=== PATIENT | female | born 1985 | race Caucasian/White ===

== ENCOUNTER 2016-12-02 10:30 | Emergency (ER) | payer MEDICAID ==
[2016-12-02] MEDS ORDERED: OXYCODONE-ACETAMINOPHEN 5-325 MG TABLET PO ONE (10:36)
--- NOTE | 2016-12-02 10:37 | ER Document Report ---
ED Medical Screen (RME) - General Stated Complaint: LEFT SIDE PAIN Time seen by provider: 10:33 Mode of Arrival: Ambulatory Information source: Patient TRAVEL OUTSIDE OF THE [place] IN LAST 30 DAYS: No - HPI Patient complains to provider of: LEFT SIDED ABD PAIN Onset: This morning Onset/Duration: Sudden Context: PERIOD STARTED THIS MORNING. PASSING LARGE CLOTS Quality of pain: Sharp, Stabbing Severity: Severe Pain Level: 5 Associated Symptoms: Abdominal pain, Vaginal bleeding Exacerbated by: Denies Relieved by: Denies Similar symptoms previously: Yes Recently seen / treated by doctor: No - Related Data Smoking: Non-smoker Frequency of alcohol use: None Drug Abuse: None Pertinent History: BTL Allergies/Adverse Reactions: No Known Allergies Allergy (Verified 12/02/16 10:32) Past Medical History - Past Medical History Cardiac Medical History: Reports: Hx Hypercholesterolemia, Hx Hypertension - x4 yrs, medication Denies: Hx Heart Attack, Hx Heart Murmur Pulmonary Medical History: Denies: Hx Asthma Neurological Medical History: Reports: Hx Seizures - x3 2007, no meds now . Denies: Hx Cerebrovascular Accident Endocrine Medical History: Reports: Hx Hyperthyroidism GI Medical History: Denies: Hx Hepatitis, Hx Hiatal Hernia, Hx Ulcer Infectious Medical History: Denies: Hx Hepatitis Past Surgical History: Reports: Hx Section, Hx Thyroid Surgery - Removal, Hx Tubal Ligation. Denies: Hx Hysterectomy, Hx Mastectomy, Hx Open Heart Surgery, Hx Pacemaker - Immunizations Hx Diphtheria, Pertussis, Tetanus Vaccination: Yes
[2016-12-02] MEDS ORDERED: HYDROCODONE/ACETAMINOPHEN 5-325 MG TABLET PO ONE (10:42)
[2016-12-02] MEDS ORDERED: NAPROXEN 250 MG TABLET PO ONE (10:51)
--- NOTE | 2016-12-02 11:04 | ER Document Report ---
Addendum entered and electronically signed by DIANA ALEMAN FNP 08:02: Impression/Plan Impression: DX: Dysmenorrhea Original Note: ED General - General Chief Complaint: Lower Abdominal Pain Stated Complaint: LEFT SIDE PAIN Mode of Arrival: Ambulatory Notes: This 31-year-old female presenting to the emergency room today stating she has cramping to her left lower quadrant consistent with menstrual cramps however a bit more severe than normal she did just start her period this morning her last menstrual period was approximately 30 days ago. She also states that she is bleeding a bit more heavily than normal. Using a pad every 3 hours. TRAVEL OUTSIDE OF THE [place] IN LAST 30 DAYS: No - HPI Onset: This morning - Related Data Allergies/Adverse Reactions: acetaminophen [From Percocet] Adverse Reaction (Verified 12/02/16 10:42) oxycodone [From Percocet] Adverse Reaction (Verified 12/02/16 10:42) Past Medical History - General Information source: Patient - Social History Smoking Status: Never Smoker Chew tobacco use (# tins/day): No Frequency of alcohol use: None Drug Abuse: None Family History: Reviewed & Not Pertinent Patient has suicidal ideation: No Patient has homicidal ideation: No - Past Medical History Cardiac Medical History: Reports: Hx Hypercholesterolemia, Hx Hypertension - x4 yrs, medication Denies: Hx Heart Attack, Hx Heart Murmur Pulmonary Medical History: Denies: Hx Asthma Neurological Medical History: Reports: Hx Seizures - x3 2007, no meds now . Denies: Hx Cerebrovascular Accident Endocrine Medical History: Reports: Hx Hyperthyroidism Renal/ Medical History: Denies: Hx Peritoneal Dialysis GI Medical History: Denies: Hx Hepatitis, Hx Hiatal Hernia, Hx Ulcer Infectious Medical History: Denies: Hx Hepatitis Past Surgical History: Reports: Hx Section, Hx Thyroid Surgery - Removal, Hx Tubal Ligation. Denies: Hx Hysterectomy, Hx Mastectomy, Hx Open Heart Surgery, Hx Pacemaker - Immunizations Hx Diphtheria, Pertussis, Tetanus Vaccination: Yes Review of Systems - Review of Systems Constitutional: No symptoms reported EENT: No symptoms reported Cardiovascular: No symptoms reported Respiratory: No symptoms reported Gastrointestinal: No symptoms reported Genitourinary: No symptoms reported Female Genitourinary: No symptoms reported Musculoskeletal: No symptoms reported Skin: No symptoms reported Hematologic/Lymphatic: No symptoms reported Neurological/Psychological: No symptoms reported Physical Exam - Vital signs Interpretation: Normal - General General appearance: Appears well, Alert - HEENT Head: Normocephalic, Atraumatic Eyes: Normal Pupils: PERRL - Respiratory Respiratory status: No respiratory distress Chest status: Nontender Breath sounds: Normal Chest palpation: Normal - Cardiovascular Rhythm: Regular Heart sounds: Normal auscultation Murmur: No - Abdominal Inspection: Normal Distension: No distension Bowel sounds: Normal Tenderness: Other - tender to deep palpation to LLQ over ovary Organomegaly: No organomegaly - Back Back: Normal, Nontender - Extremities General upper extremity: Normal inspection, Nontender, Normal color, Normal ROM , Normal temperature General lower extremity: Normal inspection, Nontender, Normal color, Normal ROM , Normal temperature, Normal weight bearing. No: Dior's sign - Neurological Neuro grossly intact: Yes Cognition: Normal Orientation: AAOx4 Gracie Coma Scale Eye Opening: Spontaneous [place] Coma Scale Verbal: Oriented [place] Coma Scale Motor: Obeys Commands Gracie Coma Scale Total: 15 Speech: Normal Motor strength normal: LUE, RUE, LLE, RLE Sensory: Normal - Psychological Associated symptoms: Normal affect, Normal mood - Skin Skin Temperature: Warm Skin Moisture: Dry Skin Color: Normal Course - Laboratory Laboratory results interpreted by me: 12/02/16 10:56 Urine Protein 30 H Discharge - Discharge Condition: Good Disposition: HOME, SELF-CARE Instructions: Dysmenorrhea ([facility]) Additional Instructions: Dysmenorrhea Your pain is dysmenorrhea -- severe pain during periods. It can be caused by uterine cramping with normal periods, or by conditions such as endometriosis (growths of uterine lining tissue outside the uterus). Your physician has found no life-threatening cause for your pain. You will receive treatment to relieve symptoms. Often antiinflammatory medication (such as ibuprofen) can help with dysmenorrhea if taken soon enough. It's best started at the first sign of a period. More severe dysmenorrhea, such as that caused by endometriosis, may require narcotic pain medication. control pills may help for recurrent dysmenorrhea if symptoms don't respond to other treatments. Regular exercise, maintaining the proper body weight, and "eating healthy" make dysmenorrhea less severe. Return for further evaluation if new symptoms develop, or if pain worsens or spreads, or if vaginal bleeding increases significantly. Follow-up with private doctor in 1 to 2 days for final radiology readings please return to the emergency room for any change worsening condition. Follow up with private M.D. for all other routine health care needs. Prescriptions: Tramadol HCl [Ultram 50 mg Tablet] 50 mg PO Q4HP PRN #60 tab PRN Reason: Naproxen Sodium [Naproxen Sodium ER] 500 mg PO Q12 PRN #20 tablet.sa PRN Reason:
[2016-12-02 11:12] LABS: APPEARANCE,URINE SLIGHTLY-CLOUDY; BILIRUBIN,URINE NEGATIVE (NEGATIVE); GLUCOSE, URINE NEGATIVE (NEGATIVE); KETONES,URINE NEGATIVE (NEGATIVE); LEUKOCYTE ESTERASE,URINE NEGATIVE (NEGATIVE); NITRITE,URINE NEGATIVE (NEGATIVE); PROTEIN,URINE 30 mg/dL (NEGATIVE); URINE SPECIFIC GRAVITY 1.025; UROBILINOGEN,URINE NEGATIVE mg/dL (<2.0)
[2016-12-02 12:01] VITALS: BP 121/86
== END 2016-12-02 12:01 | disposition home or self-care (01) ==
LOC: ER 10:30
DX: N94.6 Dysmenorrhea, unspecified (principal); R10.32 Left lower quadrant pain; Z88.5 Allergy status to narcotic agent; I10 Essential (primary) hypertension
CPT/HCPCS: 99284; 81025; 81001; J3490

== ENCOUNTER 2018-01-13 10:15 | Emergency (ER) | payer MEDICAID, OTHER ==
[2018-01-13 11:30] LABS: APPEARANCE,URINE CLEAR; BILIRUBIN,URINE NEGATIVE (NEGATIVE); GLUCOSE, URINE NEGATIVE (NEGATIVE); KETONES,URINE NEGATIVE (NEGATIVE); LEUKOCYTE ESTERASE,URINE NEGATIVE (NEGATIVE); NITRITE,URINE POSITIVE (NEGATIVE); PROTEIN,URINE 30 mg/dL (NEGATIVE); URINE SPECIFIC GRAVITY 1.027
[2018-01-13 11:33] LABS: COLOR,URINE RED
[2018-01-13] MEDS ORDERED: CEPHALEXIN 500 MG CAPSULE PO ONE (11:43)
[2018-01-13] MEDS ORDERED: FLUCONAZOLE 100 MG TABLET PO ONE (11:43)
--- NOTE | 2018-01-13 11:49 | ER Document Report ---
HPI - HPI Patient complains to provider of: UTI Pain Level: 3 Context: Patient is a 32-year-old female who presents to the Emergency department with a chief complaint Urinary frequency, urgency, pyuria and pelvic pressure that started yesterday. She denies any nausea, vomiting, abdominal pain, diarrhea, constipation, fevers or chills. States she did take [id number] Azo without any significant improvement in her symptoms. She also admits to vaginal discharge that is different than her normal for about a week. Patient is sexually active with her . Last menstrual period was 2 weeks ago. - CONSTITUTIONAL Constitutional: DENIES: Fever, Chills - EENT EENT: DENIES: Sore Throat, Ear Pain, Eye problems - NEURO Neurology: DENIES: Headache, Weakness, Vision blurred, Dizzinesss / Vertigo - CARDIOVASCULAR Cardiovascular: DENIES: Chest pain - RESPIRATORY Respiratory: DENIES: Trouble Breathing, Coughing - GASTROINTESTINAL Gastrointestinal: REPORTS: Abdominal Pain. DENIES: Black / Bloody Stools - URINARY Urinary: REPORTS: Dysuria, Urgency, Frequency - REPRODUCTIVE Reproductive: DENIES: :, Postmenopausal, Abnormal bleeding / discharge - MUSCULOSKELETAL Musculoskeletal: DENIES: Extremity pain Past Medical History - Social History Smoking Status: Former Smoker Chew tobacco use (# tins/day): No Frequency of alcohol use: None Drug Abuse: None Family History: Reviewed & Not Pertinent Patient has suicidal ideation: No Patient has homicidal ideation: No - Past Medical History Cardiac Medical History: Reports: Hx Hypercholesterolemia, Hx Hypertension - x4 yrs, medication Denies: Hx Heart Attack, Hx Heart Murmur Pulmonary Medical History: Denies: Hx Asthma Neurological Medical History: Reports: Hx Seizures - x3 2007, no meds now . Denies: Hx Cerebrovascular Accident Endocrine Medical History: Reports: Hx Hyperthyroidism Renal/ Medical History: Denies: Hx Peritoneal Dialysis GI Medical History: Denies: Hx Hepatitis, Hx Hiatal Hernia, Hx Ulcer Infectious Medical History: Denies: Hx Hepatitis Past Surgical History: Reports: Hx Section, Hx Thyroid Surgery - Removal, Hx Tubal Ligation. Denies: Hx Hysterectomy, Hx Mastectomy, Hx Open Heart Surgery, Hx Pacemaker - Immunizations Hx Diphtheria, Pertussis, Tetanus Vaccination: Yes Vertical Provider Document - CONSTITUTIONAL Agree With Documented VS: Yes Notes: PHYSICAL EXAM GENERAL: Alert, interacts well. LUNGS: Clear to auscultation bilaterally, no wheezes, rales, or rhonchi. No respiratory distress. HEART: Regular rate and rhythm. No murmurs, gallops, or rubs. ABDOMEN: Soft, nondistended, nontender. No guarding, rebound, or rigidity.. Bowel sounds present in all 4 quadrants. Pelvic exam declined EXTREMITIES: Moves all 4 extremities spontaneously. No edema, radial and dorsalis pedis pulses 2/4 bilaterally. No cyanosis. NEUROLOGICAL: Alert and oriented x4. Normal speech. PSYCH: Normal affect, normal mood. SKIN: Warm, dry, normal turgor. No rashes or lesions noted. - INFECTION CONTROL TRAVEL OUTSIDE OF THE [place] IN LAST 30 DAYS: No - RESPIRATORY O2 Sat by Pulse Oximetry: 98 Course - Re-evaluation Re-evalutation: 01/13/18 11:44 Patient presents with symptoms consistent with an acute cystitis also with presence of yeast and symptoms consistent with vaginal candiasis. Vitals wnl. No history of fever, flank pain, or constitution symptoms to suggest ascending infection at this time. Patient is well in appearance, tolerating oral intake without difficulty. No focal abdominal tenderness to suggest acute appendicitis , biliary pathology, acute pancreatitis, tubo-ovarian abscesses, or pelvic inflammatory disease. Patient will be started on antibiotics at this time. A culture has been sent. They will be discharged with return precautions and follow-up recommendations. - Vital Signs Vital signs: Temp Pulse Resp BP Pulse Ox 97.8 F 86 20 136/79 H 98 01/13/18 10:38 01/13/18 10:38 01/13/18 10:38 01/13/18 10:38 01/13/18 10:38 - Laboratory Laboratory results interpreted by ak: 01/13/18 10:25 Urine Protein 30 H Urine Blood MODERATE H Urine Nitrite POSITIVE H Urine Urobilinogen 4.0 H Discharge - Discharge Clinical Impression: Vagina, candidiasis UTI (urinary tract infection) Qualifiers: Urinary tract infection type: acute cystitis Hematuria presence: with hematuria Qualified Code(s): N30.01 - Acute cystitis with hematuria Condition: Good Disposition: HOME, SELF-CARE Additional Instructions: Your urine shows findings consistent with a urinary tract infection. Please take all the antibiotics as directed even if your symptoms have improved. Please follow-up with your primary care physician as needed. Return to emergency room if you develop fever >101F, persistent vomiting, become lethargic , have severe pain in your sides, or any other symptoms that are concerning to you. Vaginal Yeast Infection You have evidence of a yeast infection -- called "elina." A vaginal yeast infection often causes itching and discharge. While not dangerous, it can be very unpleasant. A yeast infection often follows the use of powerful antibiotics. It is more likely to occur in diabetics. The treatment now is usually a single pill of Diflucan, but also an antifungal cream or suppository may be used for a few days. You do not need to avoid sexual intercourse. Recurrences are common. You can make a recurrence less likely by wearing cotton underwear and avoiding tight clothing. For mild recurrences, you can try [id number] creams or suppositories that are made specifically for yeast. If the symptoms do not resolve, you should follow up for re-examination with your primary care doctor. Sometimes treatment of the sexual partner is necessary if infections are recurrent. Prescriptions: Cephalexin Monohydrate [Keflex 500 mg Capsule] 500 mg PO BID 5 Days capsule Fluconazole [Diflucan] 150 mg PO ONCE PRN #1 tablet PRN Reason: Forms: Return to Work Referrals: PAVEL KING MD [Primary Care Provider] - Follow up in 1 week
[2018-01-13 12:00] VITALS: BP 131/69
== END 2018-01-13 12:00 | disposition home or self-care (01) ==
LOC: ER 10:15
DX: B37.3 Candidiasis of vulva and vagina (principal); N30.01 Acute cystitis with hematuria; E78.00 Pure hypercholesterolemia, unspecified; I10 Essential (primary) hypertension; Z87.891 Personal history of nicotine dependence; Z98.51 Tubal ligation status
CPT/HCPCS: 99283; 87086; 81025; 87088; 81001; 87186; J3490

== ENCOUNTER 2018-12-01 10:25 | Emergency (ER) | payer MEDICAID ==
[2018-12-01] MEDS ORDERED: ONDANSETRON HCL INJ/PF 4 MG/2 ML SDV IV ONE (10:48)
[2018-12-01] MEDS ORDERED: NORMAL SALINE 1000 ML 1,000 ML IV ONE (10:49)
[2018-12-01] MEDS ORDERED: FAMOTIDINE INJ/PF 20 MG/2 ML SDV IV ONE (10:49)
[2018-12-01] MEDS ORDERED: MAG HYDROX/AL HYDROX/SIMETH SUSP 30 ML UDCUP PO ONE (10:50)
[2018-12-01] MEDS ORDERED: METOCLOPRAMIDE HCL ORAL SOLN 10 MG/10 ML UDCUP PO ONE (10:50)
[2018-12-01] MEDS ORDERED: LIDOCAINE 2% VISCOUS SOLN 20 ML UDCUP PO ONE (10:50)
--- NOTE | 2018-12-01 10:52 | ER Document Report ---
ED Medical Screen (RME) - General Chief Complaint: Abdominal Pain Stated Complaint: FLANK/ABDOMINAL PAIN Time Seen by Provider: 12/01/18 10:44 Primary Care Provider: PAVEL KING MD [Primary Care Provider] - Follow up as needed Information source: Patient Notes: 33-year-old female presents emergency department with complaints of left upper quadrant abdominal pain for the last 2 months. She describes the pain as a sharp and stabbing sensation. No radiation. She states that when she has this pain she has associated nausea but denies any vomiting, constipation. Patient states that last night she began having more epigastric pain. She states that she has been having some diarrhea today. No history of sick contacts. No hematochezia, melena. Last menstrual period was 11/17/18. I have greeted and performed a rapid initial assessment of this patient. A comprehensive ED assessment and evaluation of the patient, analysis of test results and completion of the medical decision making process will be conducted by additional ED providers. PHYSICAL EXAMINATION: GENERAL: Well-appearing, well-nourished and in no acute distress. HEAD: Atraumatic, normocephalic. EYES: Pupils equal round extraocular movements intact, conjunctiva are normal. ENT: Nares patent NECK: Normal range of motion LUNGS: No respiratory distress Musculoskeletal: Normal range of motion NEUROLOGICAL: Normal speech, normal gait. PSYCH: Normal mood, normal affect. SKIN: Warm, Dry, normal turgor, no rashes or lesions noted. TRAVEL OUTSIDE OF THE [place] IN LAST 30 DAYS: No - Related Data Allergies/Adverse Reactions: oseltamivir [From Tamiflu] Allergy (Verified 12/01/18 10:28) acetaminophen [From Percocet] Adverse Reaction (Verified 01/13/18 10:19) oxycodone [From Percocet] Adverse Reaction (Verified 01/13/18 10:19) Past Medical History - Past Medical History Cardiac Medical History: Reports: Hx Hypercholesterolemia, Hx Hypertension - x4 yrs, medication Denies: Hx Heart Attack, Hx Heart Murmur Pulmonary Medical History: Denies: Hx Asthma Neurological Medical History: Reports: Hx Seizures - x3 2007, no meds now . Denies: Hx Cerebrovascular Accident Endocrine Medical History: Reports: Hx Hyperthyroidism Renal/ Medical History: Denies: Hx Peritoneal Dialysis GI Medical History: Denies: Hx Hepatitis, Hx Hiatal Hernia, Hx Ulcer Infectious Medical History: Denies: Hx Hepatitis Past Surgical History: Reports: Hx Section, Hx Thyroid Surgery - Removal, Hx Tubal Ligation. Denies: Hx Hysterectomy, Hx Mastectomy, Hx Open Heart Surgery, Hx Pacemaker - Immunizations Hx Diphtheria, Pertussis, Tetanus Vaccination: Yes Physical Exam - Vital signs Vitals: Temp Pulse Resp BP Pulse Ox 98.7 F 80 20 125/65 99 12/01/18 10:42 12/01/18 10:42 12/01/18 10:42 12/01/18 10:42 12/01/18 10:42 Course - Vital Signs Vital signs: Temp Pulse Resp BP Pulse Ox 98.7 F 80 20 125/65 99 12/01/18 10:42 12/01/18 10:42 12/01/18 10:42 12/01/18 10:42 12/01/18 10:42 Doctor's Discharge - Discharge Referrals: PAVEL KING MD [Primary Care Provider] - Follow up as needed
[2018-12-01 11:18] LABS: APPEARANCE,URINE CLOUDY; BILIRUBIN,URINE NEGATIVE (NEGATIVE); COLOR,URINE YELLOW; GLUCOSE, URINE NEGATIVE (NEGATIVE); KETONES,URINE NEGATIVE (NEGATIVE); LEUKOCYTE ESTERASE,URINE TRACE (NEGATIVE); NITRITE,URINE NEGATIVE (NEGATIVE); PROTEIN,URINE NEGATIVE (NEGATIVE); URINE SPECIFIC GRAVITY 1.023; UROBILINOGEN,URINE NEGATIVE mg/dL (<2.0)
--- NOTE | 2018-12-01 11:24 | ER Document Report ---
ED GI/ - General Chief Complaint: Abdominal Pain Stated Complaint: FLANK/ABDOMINAL PAIN Time Seen by Provider: 12/01/18 10:44 Primary Care Provider: PAVEL KING MD [Primary Care Provider] - Follow up as needed Notes: 33-year-old female presents emergency department with complaints of left upper quadrant abdominal pain for the last 2 months. She describes the pain as a sharp and stabbing sensation. No radiation. She states that when she has this pain she has associated nausea but denies any vomiting, constipation. Patient states that last night she began having more epigastric pain. She states that she has been having some diarrhea today. No history of sick contacts. No hematochezia, melena. Last menstrual period was 11/17/18. TRAVEL OUTSIDE OF THE [place] IN LAST 30 DAYS: No - Related Data Allergies/Adverse Reactions: oseltamivir [From Tamiflu] Allergy (Verified 12/01/18 10:28) acetaminophen [From Percocet] Adverse Reaction (Verified 01/13/18 10:19) oxycodone [From Percocet] Adverse Reaction (Verified 01/13/18 10:19) Past Medical History - General Information source: Patient - Social History Smoking Status: Never Smoker Family History: Reviewed & Not Pertinent Patient has suicidal ideation: No Patient has homicidal ideation: No - Past Medical History Cardiac Medical History: Reports: Hx Hypercholesterolemia, Hx Hypertension - x4 yrs, medication Denies: Hx Heart Attack, Hx Heart Murmur Pulmonary Medical History: Denies: Hx Asthma Neurological Medical History: Reports: Hx Seizures - x3 2007, no meds now . Denies: Hx Cerebrovascular Accident Endocrine Medical History: Reports: Hx Hyperthyroidism Renal/ Medical History: Denies: Hx Peritoneal Dialysis GI Medical History: Denies: Hx Hepatitis, Hx Hiatal Hernia, Hx Ulcer Infectious Medical History: Denies: Hx Hepatitis Past Surgical History: Reports: Hx Section, Hx Thyroid Surgery - 11/13/15 Removal, Hx Tubal Ligation. Denies: Hx Hysterectomy, Hx Mastectomy, Hx Open Heart Surgery, Hx Pacemaker - Immunizations Hx Diphtheria, Pertussis, Tetanus Vaccination: Yes Review of Systems - Review of Systems Constitutional: denies: Chills, Fever Gastrointestinal: Abdominal pain, Nausea. denies: Vomiting Neurological/Psychological: denies: Headaches -: Yes All other systems reviewed and negative Physical Exam - Vital signs Vitals: Temp Pulse Resp BP Pulse Ox 98.7 F 80 20 125/65 99 12/01/18 10:42 12/01/18 10:42 12/01/18 10:42 12/01/18 10:42 12/01/18 10:42 - Notes Notes: GENERAL_APPEARANCE: well_nourished, alert, cooperative, no_acute_distress, no_obvious_discomfort. VITALS: reviewed, see vital signs table. HEAD: no_swelling\tenderness on the head. EYES: PERRL, EOMI, conjunctiva_clear. NOSE: no_nasal_discharge. MOUTH: (-)decreased moisture. THROAT: no_throat_inflammation, no_airway_obstruction. no_lymphadenopathy NECK: supple, no_neck_tenderness, (-)thyromegaly. BACK: no_back_tenderness. CHEST_WALL: no_chest_tenderness. LUNGS: no_wheezing, no_rales, no_rhonchi, (-)accessory muscle use, good air exchange bilateral. HEART: normal_rate, normal_rhythm, normal_S1, normal_S2, (-)S3, (-)S4, no_murmur, no_rub. ABDOMEN: normal_BS, soft, left upper quadrant_abd_tenderness, (-)guarding, (- )rebound, no_organomegaly, no_abd_masses. EXTREMITIES: good pulses in all_extremities, no_swelling\tenderness in the ext remities, no_edema. SKIN: warm, dry, good_color, no_rash. MENTAL_STATUS: speech_clear, oriented_X_3, normal_affect, responds_appropriately to questions. NEURO: Neg Motor or Sensory Deficits on exam, CN 2-12 intact, DTR 2+ symmetric x 4, No cerbellar signs Course - Re-evaluation Re-evalutation: 12/01/18 11:22 33-year-old female presents with 2-month history of left upper quadrant left flank pain. States this is been on and off for the last 2 months. She is rather sharp and stabbing patient also had some nausea last night. She comes in for evaluation and treatment. She has spoke with her family doctor about this who thought this was more constipation driven patient. - Vital Signs Vital signs: Temp Pulse Resp BP Pulse Ox 98.7 F 80 20 125/65 99 01/30/19 10:42 12/01/18 10:42 12/01/18 10:42 12/01/18 10:42 12/01/18 10:42 - Laboratory Result Diagrams: 12/01/18 11:20 12/01/18 11:20 Laboratory results interpreted by me: 12/01/18 12/01/18 10:55 11:20 MCV 79 L MCH 26.0 L RDW 14.9 H Urine Blood SMALL H Ur Leukocyte Esterase TRACE H Discharge - Discharge Clinical Impression: Abdominal pain Qualifiers: Abdominal location: left upper quadrant Qualified Code(s): R10.12 - Left upper quadrant pain Disposition: HOME, SELF-CARE Instructions: Abdominal Pain ([facility]) Prescriptions: Famotidine [Pepcid 40 mg Tablet] 40 mg PO QHS #30 tablet Referrals: PAVEL KING MD [Primary Care Provider] - Follow up as needed
[2018-12-01 11:53] LABS: ABSOLUTE BASOPHILS # (AUTO) 0.1 10^3/uL (0.0-0.2); ABSOLUTE EOSINOPHILS # (AUTO) 0.1 10^3/uL (0.0-0.6); ABSOLUTE LYMPHOCYTES (AUTO) 2.1 10^3/uL (0.5-4.7); ABSOLUTE MONOCYTES (AUTO) 0.5 10^3/uL (0.1-1.4); ABSOLUTE NEUT (AUTO) 6.3 10^3/uL (1.7-8.2); BASOPHILS % (AUTO) 0.6 % (0-2); EOSINOPHILS % (AUTO) 1.2 % (0-6); HEMATOCRIT 37.9 % (36.0-47.0); HEMOGLOBIN 12.5 g/dL (12.0-15.5); LYMPHOCYTES % (AUTO) 23.1 % (13-45); MEAN CORPUSCULAR HGB CONC 33.1 g/dL (32.0-36.0); MEAN CORPUSCULAR VOLUME 79 fl (80-97); MONOCYTES % (AUTO) 5.5 % (3-13); PLATELET COUNT 446 10^3/uL (150-450); RED BLOOD COUNT 4.82 10^6/uL (3.72-5.28); RED CELL DISTRIBUTION WIDTH 14.9 % (11.5-14.0); SEGMENTED NEUTROPHILS % (AUTO) 69.6 % (42-78); TOTAL CELLS COUNTED % (AUTO) 100 %
[2018-12-01 12:05] LABS: ALANINE AMINOTRANSFERASE 22 U/L (9-52); ALBUMIN 4.9 g/dL (3.5-5.0); ALKALINE PHOSPHATASE 69 U/L (38-126); ANION GAP 10 (5-19); ASPARTATE AMINO TRANSFERASE 24 U/L (14-36); BILIRUBIN,DIRECT 0.3 mg/dL (0.0-0.4); BILIRUBIN,TOTAL 0.5 mg/dL (0.2-1.3); BLOOD UREA NITROGEN 13 mg/dL (7-20); CALCIUM 9.8 mg/dL (8.4-10.2); CARBON DIOXIDE 28 mmol/L (22-30); CHLORIDE 104 mmol/L (98-107); GLUCOSE 93 mg/dL (75-110); LIPASE 120.7 U/L (23-300); SODIUM 142.2 mmol/L (137-145); TOTAL PROTEIN 8.1 g/dL (6.3-8.2)
--- NOTE | 2018-12-01 12:14 | RADIOLOGY REPORT (SQ) ---
EXAM DESCRIPTION: CT ABD/PELVIS NO ORAL OR IV COMPLETED DATE/TIME: 12/01/2018 11:37 am REASON FOR STUDY: Left flank - LUQ COMPARISON: None. TECHNIQUE: CT scan of the abdomen and pelvis performed without intravenous or oral contrast. Images reviewed with lung, soft tissue, and bone windows. Reconstructed coronal and sagittal MPR images revi ewed. All images stored on PACS. All CT scanners at this facility use dose modulation, iterative reconstruction, and/or weight based d osing when appropriate to reduce radiation dose to as low as reasonably achievable (ALARA). [facility]: Dose Right [facility]: CareDose [facility]: Dose Right [facility]: Teradose 4D [facility]: [employer] RADIATION DOSE: CT Rad equipment meets quality standard of care and radiation dose reduction techniq ues were employed. CTDIvol: 18.9 mGy. DLP: 1159 mGy-cm.mGy. LIMITATIONS: None. FINDINGS: LOWER CHEST: No significant findings. No nodules or infiltrates. NON-CONTRASTED LIVER, SPLEEN, ADRENALS: Evaluation limited by lack of IV contrast. No identified sign ificant masses. PANCREAS: No masses. No peripancreatic inflammatory changes. GALLBLADDER: No identified stones by CT criteria. No inflammatory changes to suggest cholecystitis. RIGHT KIDNEY AND URETER: No suspicious masses. Assessment limited by lack of IV contrast. No signif icant calcifications. No hydronephrosis or hydroureter. LEFT KIDNEY AND URETER: No suspicious masses. Assessment limited by lack of IV contrast. No signifi cant calcifications. No hydronephrosis or hydroureter. AORTA AND RETROPERITONEUM: No aneurysm. No retroperitoneal masses or adenopathy. BOWEL AND PERITONEAL CAVITY: No obvious masses or inflammatory changes. No free fluid. APPENDIX: Normal. PELVIS, BLADDER, AND ABDOMINAL WALL:No abnormal masses. No free fluid. Bladder normal. BONES: No significant findings. OTHER: No other significant finding. IMPRESSION: NO SIGNIFICANT OR ACUTE PROCESS IN THE ABDOMEN OR PELVIS. COMMENT: Quality ID # [id number]: Final reports with documentation of one or more dose reduction techniques (e.g., Automated exposure control, adjustment of the mA and/or kV according to patient size, use of iterative reconstruction technique) TECHNICAL DOCUMENTATION: JOB ID: [id number] [email or web address]- All Rights Reserved Reading location - IP/workstation name: [email or web address]
[2018-12-01 14:38] VITALS: BP 126/60
== END 2018-12-01 14:37 | disposition home or self-care (01) ==
LOC: ER 10:25
DX: R10.12 Left upper quadrant pain (principal); R11.0 Nausea; E78.00 Pure hypercholesterolemia, unspecified; I10 Essential (primary) hypertension; Z88.6 Allergy status to analgesic agent; Z98.51 Tubal ligation status
CPT/HCPCS: 99284; 36415; 83690; 85025; 81025; 80053; 81001; 74176; J3490 ×3

== ENCOUNTER 2019-02-21 13:24 | Emergency (ER) | payer SELFPAY ==
[2019-02-21 13:30] VITALS: BP 146/81
[2019-02-21] MEDS ORDERED: FLUCONAZOLE 100 MG TABLET PO ONE (13:57)
--- NOTE | 2019-02-21 14:01 | ER Document Report ---
ED GI/ - General Chief Complaint: Vaginal Discharge Stated Complaint: VAGINAL DISCHARGE Time Seen by Provider: 02/21/19 13:52 Primary Care Provider: PAVEL KING MD [Primary Care Provider] - Follow up as needed Mode of Arrival: Ambulatory Information source: Patient TRAVEL OUTSIDE OF THE [place] IN LAST 30 DAYS: No - HPI Patient complains to provider of: Vaginal discharge Notes: 02/21/19 13:57 Patient here with complaints of stating that she has a yeast infection. The patient states that she is currently taking amoxicillin for a dental procedure that is going to be occurring in the next few days. Since being on the amoxicillin, she has had vaginal itching and white discharge. She states that i t feels exactly like previous yeast infections that she has had in the past. She denies any pain. No dysuria. No fevers. No nausea, vomiting, diarrhea. No rash. She denies any concern for sexual transmitted infection. She denies any abdominal pain. No chest pain or shortness of breath. No numbness, tingling, weakness. No other complaints. - Related Data Allergies/Adverse Reactions: oseltamivir [From Tamiflu] Allergy (Verified 02/21/19 13:25) acetaminophen [From Percocet] Adverse Reaction (Verified 02/21/19 13:25) oxycodone [From Percocet] Adverse Reaction (Verified 02/21/19 13:25) Past Medical History - Social History Smoking Status: Never Smoker Chew tobacco use (# tins/day): No Frequency of alcohol use: None Drug Abuse: None Family History: Reviewed & Not Pertinent Patient has suicidal ideation: No Patient has homicidal ideation: No - Past Medical History Cardiac Medical History: Reports: Hx Hypercholesterolemia, Hx Hypertension - x4 yrs, medication Denies: Hx Heart Attack, Hx Heart Murmur Pulmonary Medical History: Denies: Hx Asthma Neurological Medical History: Reports: Hx Seizures - x3 2007, no meds now . Denies: Hx Cerebrovascular Accident Endocrine Medical History: Reports: Hx Hyperthyroidism Renal/ Medical History: Denies: Hx Peritoneal Dialysis GI Medical History: Denies: Hx Hepatitis, Hx Hiatal Hernia, Hx Ulcer Infectious Medical History: Denies: Hx Hepatitis Past Surgical History: Reports: Hx Section, Hx Thyroid Surgery - 11/13/15 Removal, Hx Tubal Ligation. Denies: Hx Hysterectomy, Hx Mastectomy, Hx Open Heart Surgery, Hx Pacemaker - Immunizations Hx Diphtheria, Pertussis, Tetanus Vaccination: Yes Review of Systems - Review of Systems -: Yes All other systems reviewed and negative Physical Exam - Vital signs Vitals: Temp Pulse Resp BP Pulse Ox 98.6 F 81 16 146/81 H 98 02/21/19 13:29 02/21/19 13:29 02/21/19 13:29 02/21/19 13:29 02/21/19 13:29 - Notes Notes: GENERAL: alert, cooperative, nontoxic, no distress. HEAD: normocephalic, atraumatic EYES: conjunctiva pink without discharge, no external redness or swelling. EARS: no external swelling, no external redness NOSE: atraumatic, no external swelling MOUTH/THROAT: mucous membranes moist and pink, posterior pharynx without erythema, swelling, exudate. No trismus or drooling. NECK: soft, supple, full range of motion, no meningismus. CHEST: no distress, lungs clear and equal throughout. No wheezing, rales, rhonchi. CARDIAC: regular rate and rhythm, no murmur, normal capillary refill, normal pulses. No peripheral edema noted. ABDOMEN: Soft, nontender. No rebound tenderness or guarding. BACK: full range of motion, no CVA tenderness. EXTREMITIES: full range of motion of all extremities. No redness, no swelling. NEURO: alert and oriented x 3, no focal deficits, full range of motion of all extremities. PYSCH: appropriate mood, affect. Patient is cooperative. SKIN: pink, warm, dry, no rash. Course - Re-evaluation Re-evalutation: 02/21/19 13:59 Patient is nontoxic-appearing with stable vitals. Patient here with complaints of yeast infection. She states she is taking amoxicillin for dental procedure has had vaginal itching and discharge. No dysuria. No abdominal pain. No pelvic pain. No fever. I offered to check urine, wet prep and pelvic exam on the patient. She states that she knows that this is a yeast infection would prefer to just be treated. This does seem reasonable as the patient is nontoxic-appearing at this time. He will be given a dose of Diflucan here. I will write a prescription for Diflucan that she can have available if she continues to have symptoms 5 days after finishing her antibiotics. She was instructed to follow-up sooner if she develops any pain, high fever, persistent vomiting, or has any further concerns. The patient's emergency department workup and current diagnosis were explained to the patient and or family. Follow-up instructions were provided. Medications if prescribed were discussed. Instructions for when to return to the emergency department including specific worrisome symptoms were discussed with the patient and/or family. - Vital Signs Vital signs: Temp Pulse Resp BP Pulse Ox 98.6 F 81 16 146/81 H 98 02/21/19 13:29 02/21/19 13:29 02/21/19 13:29 02/21/19 13:29 02/21/19 13:29 Discharge - Discharge Clinical Impression: Vaginitis Qualifiers: Chronicity: acute Qualified Code(s): N76.0 - Acute vaginitis Condition: Stable Disposition: HOME, SELF-CARE Instructions: Vaginal Yeast Infection ([facility]), Vaginitis ([facility]) Additional Instructions: Take medication as prescribed. Follow-up if not better in the next 5 days, sooner for worsening symptoms, pain, fever, persistent vomiting, or for any further concerns. Prescriptions: Fluconazole [Diflucan 100 Mg Tablet] 100 mg PO ONCE #1 tablet Forms: Elevated Blood Pressure, Smoking Cessation Education Referrals: PAVEL KING MD [Primary Care Provider] - Follow up as needed
== END 2019-02-21 14:05 | disposition home or self-care (01) ==
LOC: ER 13:24
DX: N76.0 Acute vaginitis (principal); I10 Essential (primary) hypertension
CPT/HCPCS: 99283

== ENCOUNTER 2020-06-09 01:49 | Emergency (ER) | payer SELFPAY ==
[2020-06-09 04:15] LABS: ABSOLUTE BASOPHILS # (AUTO) 0.1 10^3/uL (0.0-0.2); ABSOLUTE EOSINOPHILS # (AUTO) 0.1 10^3/uL (0.0-0.6); ABSOLUTE LYMPHOCYTES (AUTO) 1.4 10^3/uL (0.5-4.7); ABSOLUTE MONOCYTES (AUTO) 0.5 10^3/uL (0.1-1.4); ABSOLUTE NEUT (AUTO) 7.6 10^3/uL (1.7-8.2); BASOPHILS % (AUTO) 0.5 % (0-2); EOSINOPHILS % (AUTO) 0.7 % (0-6); HEMATOCRIT 39.3 % (36.0-47.0); LYMPHOCYTES % (AUTO) 14.4 % (13-45); MEAN CORPUSCULAR HEMOGLOBIN 26.4 pg (27.0-33.4); MEAN CORPUSCULAR HGB CONC 33.2 g/dL (32.0-36.0); MEAN CORPUSCULAR VOLUME 80 fl (80-97); MONOCYTES % (AUTO) 4.9 % (3-13); PLATELET COUNT 346 10^3/uL (150-450); RED BLOOD COUNT 4.93 10^6/uL (3.72-5.28); RED CELL DISTRIBUTION WIDTH 17.3 % (11.5-14.0); SEGMENTED NEUTROPHILS % (AUTO) 79.5 % (42-78); TOTAL CELLS COUNTED % (AUTO) 100 %; WHITE BLOOD COUNT 9.6 10^3/uL (4.0-10.5)
[2020-06-09 04:36] LABS: ALBUMIN 4.2 g/dL (3.5-5.0); ALKALINE PHOSPHATASE 57 U/L (38-126); ANION GAP 6 (5-19); ASPARTATE AMINO TRANSFERASE 21 U/L (14-36); BILIRUBIN,TOTAL 0.3 mg/dL (0.2-1.3); BLOOD UREA NITROGEN 14 mg/dL (7-20); CALCIUM 8.8 mg/dL (8.4-10.2); CARBON DIOXIDE 24 mmol/L (22-30); CHLORIDE 105 mmol/L (98-107); GLUCOSE 113 mg/dL (75-110); POTASSIUM 4.5 mmol/L (3.6-5.0); TOTAL PROTEIN 7.2 g/dL (6.3-8.2)
[2020-06-09 04:39] LABS: ANISOCYTOSIS 1+; HYPOCHROMASIA SLIGHT; PLATELET COMMENT ADEQUATE
[2020-06-09 04:42] LABS: OVALOCYTES SLIGHT
--- NOTE | 2020-06-09 06:51 | ER Document Report ---
ED General - General Chief Complaint: Palpitations Stated Complaint: DIFFICULTY BREATHING TRAVEL OUTSIDE OF THE [place] IN LAST 30 DAYS: No - HPI Notes: 34-year-old female history of distant thyroidectomy on Synthroid, hypertension p resents with elevated heart rate. Patient began using [id number] diet pills approximately 1 week ago with unknown ingredients. Supplement called "trufix." Patient noticed that over the last several hours before presentation that her heart rate was accelerated and she checked her pulse on her watch which was in 120s 130s at rest that she presented to ED. Rhythm after watch was sinus rhythm during this event. Patient now feels completely asymptomatic and will be discontinuing diet pills. Patient denies any shortness of breath, chest pain, dizziness, syncope, altered mental status, unexplained weight change, vomiting, recent illness, diarrhea, black or bloody stools, fever, throat pain, prior episodes, DVT/PE/hypercoagulability history in self or family, lower extremity edema or pain, recent travel/trauma/surgery/immobilization, cancer history, cough/hemoptysis, smoking or drug use. Patient has progestin only IUD in place. - Related Data Allergies/Adverse Reactions: oseltamivir [From Tamiflu] Allergy (Verified 02/21/19 13:25) acetaminophen [From Percocet] Adverse Reaction (Verified 02/21/19 13:25) oxycodone [From Percocet] Adverse Reaction (Verified 02/21/19 13:25) Home Medications: amlodipine. iron. levothyroxine Past Medical History - General Information source: Patient - Social History Smoking Status: Never Smoker Chew tobacco use (# tins/day): No Frequency of alcohol use: None Drug Abuse: None Family History: Reviewed & Not Pertinent Patient has homicidal ideation: No - Past Medical History Cardiac Medical History: Reports: Hx Hypercholesterolemia, Hx Hypertension - x4 yrs, medication Denies: Hx Heart Attack, Hx Heart Murmur Pulmonary Medical History: Denies: Hx Asthma Neurological Medical History: Reports: Hx Seizures - x3 2007, no meds now . Denies: Hx Cerebrovascular Accident Endocrine Medical History: Reports: Hx Hyperthyroidism Renal/ Medical History: Denies: Hx Peritoneal Dialysis GI Medical History: Denies: Hx Hepatitis, Hx Hiatal Hernia, Hx Ulcer Infectious Medical History: Denies: Hx Hepatitis Past Surgical History: Reports: Hx Section, Hx Thyroid Surgery - 11/13/15 Removal, Hx Tubal Ligation. Denies: Hx Hysterectomy, Hx Mastectomy, Hx Open Heart Surgery, Hx Pacemaker - Immunizations Hx Diphtheria, Pertussis, Tetanus Vaccination: Yes Review of Systems - Review of Systems Notes: REVIEW OF SYSTEMS: CONSTITUTIONAL : Denies fever, chills, or sweats. EENT: Denies recent cold/sinus symptoms, denies throat pain CARDIOVASCULAR: Denies chest pain, OMAR RESPIRATORY: Denies cough, denies shortness of breath. GASTROINTESTINAL: Denies abdominal pain, nausea/vomiting. GENITOURINARY: Denies difficulty urinating, painful urination. FEMALE GENITOURINARY: Denies abnormal vaginal bleeding, vaginal discharge. MUSCULOSKELETAL: Denies neck pain, back pain. SKIN: Denies rash or skin lesions. HEMATOLOGIC : Denies easy bruising or bleeding. LYMPHATIC: Denies swollen, enlarged glands. NEUROLOGICAL: Denies headache, denies change in gait. PSYCHIATRIC: Denies anxiety or stress or depression. Physical Exam - Vital signs Vitals: Temp Pulse Resp BP Pulse Ox 98.4 F 104 H 18 156/107 H 100 06/09/20 01:50 06/09/20 01:50 06/09/20 01:50 06/09/20 01:50 06/09/20 01:50 - Notes Notes: PHYSICAL EXAMINATION: GENERAL: Very well-appearing, well-nourished, talkative pleasant young adult patient sitting up in exam stretcher with no visible signs of discomfort and in no acute distress. HEAD: Atraumatic, normocephalic. EYES: Pupils equal round and appropriate constriction, sclera anicteric, conjunctiva are normal. ENT: nares patent, moist mucous membranes. NECK: Normal range of motion, supple without lymphadenopathy, no palpable goiter or thyroid nodule LUNGS: Breath sounds clear to auscultation bilaterally and equal. No wheezes rales or rhonchi. HEART: Regular rate and rhythm without murmurs, rubs, or gallops ABDOMEN: Soft, nontender, no guarding, no masses, no CVAT EXTREMITIES: Normal range of motion, no pitting or edema. No cyanosis. No calf tenderness. NEUROLOGICAL: Awake, alert, conversing appropriately, moves all extremities spontaneously. No hyperreflexia, no psychomotor agitation, no tremor PSYCH: Normal mood, normal affect. SKIN: Warm, Dry, normal turgor, no rashes or lesions noted. Course - Re-evaluation Re-evalutation: 06/09/20 06:30 Patient presents with accelerated heart rate after from diet supplements. Patient asymptomatic in the ED with normal exam. Patient history of hypothyroidism on Synthroid and is been well controlled with only recent medication for symptoms. No other signs of hyperthyroidism/thyroid storm/thyroid toxicity. Patient borderline tachycardic in ED which resolved at time of my evaluation no intervention. Patient PERC negative, but given that patient has progestin IUD in place which does confer increased risk of PE, albeit lesser risk factors and exogenous estrogen, obtain d-dimer to rule out PE. D-dimer insufficient to rule out PE as patient low risk for PE as per Wells' criteria. Patient's work-up the following significant findings, patient in agreement with immediately for continuing medication, and education given the patient about the use of non-FDA regulated dietary supplements. Patient's TSH slightly elevated, but unlikely contributory to her ED presentation. Patient informed of slightly abnormal lab work and given copy of all results instructed to follow-up closely with her primary doctor and patch worker. Patient given extensive return. Department precautions which she demonstrated understanding of. Patient was in agreement with discharge plan and follow-up instructions and denied having any other questions or concerns at discharge. - Vital Signs Vital signs: Temp Pulse Resp BP Pulse Ox 98.4 F 104 H 17 132/79 H 99 06/09/20 02:55 06/09/20 01:50 06/09/20 06:59 06/09/20 07:00 06/09/20 06:59 - Laboratory Result Diagrams: 06/09/20 04:00 06/09/20 04:00 Laboratory results interpreted by me: 06/09/20 06/09/20 06/09/20 04:00 04:00 04:00 MCH 26.4 L RDW 17.3 H Seg Neutrophils % 79.5 H Sodium 134.8 L Glucose 113 H TSH 5.91 H - EKG Interpretation by Me Additional EKG results interpreted by me: 06/09/20 03:15 Rate 89, sinus rhythm, no significant ST elevations or depressions, no pathologic T wave abnormalities, QTc 463, GA 154, no signs of Brugada /channelopathies/HCM Discharge - Discharge Clinical Impression: Tachycardia, Herbal supplement started Hypothyroidism Qualifiers: Hypothyroidism type: acquired Qualified Code(s): E03.9 - Hypothyroidism, unspecified Disposition: HOME, SELF-CARE Additional Instructions: Stop taking diet pills immediately. Follow-up with your doctor within 1 week. Your thyroid levels may need to be rechecked or your dose of Synthroid adjusted, bring results from today's blood work with you when you follow-up with your doctor. If you should have any recurring symptoms, chest pain, trouble breathing, dizziness, fainting, or any other worsening or alarming symptoms please return to the emergency department immediately.Palpitations (Irregular/Rapid Heartrate) Irregular or rapid heartbeat is called "palpitation." To diagnose the cause of palpitation, we have to "catch it in the act" with an EKG. Sinus Tachycardia: This is a rapid (but NORMAL) rhythm that can be due to fever, pain, anxiety, lack of sleep, over-exertion, or drugs. Cold medications, caffeine, and diet pills are particularly likely to cause tachycardia. Usually, all that's required is rest, reassurance, and avoiding caffeine, alcohol, nicotine, and unnecessary medicines. Paroxysmal Atrial Tachycardia (PAT): This abnormally rapid heartbeat is caused by a "short circuit" in the electrical system of the heart. It is not d angerous, unless other heart disease is present. These attacks of PAT may occur occasionally for years. Medication is available for treatment. Paroxysmal Atrial Fibrillation or Atrial Flutter: This is irregular electrical activity in the upper heart chamber. These abnormal rhythms often occur with valve disease or in hearts damaged by hardening of the arteries. These rhythms usually require further testing, for example a cardiac echo. Premature Beats: Extra beats occur more commonly after caffeine, nicotine, alcohol, cold pills, diet pills. Emotional stress or fatigue also provoke them. Extra beats are only dangerous when heart disease is present. They usually need no treatment. If they're frequent, or if evidence of heart disease develops, medication can be given to suppress them. If we were unable to "catch" the palpitations on EKG, you should try to get an EKG immediately if the symptoms begin again. Contact the physician at once if you develop persistent lightheadedness, shortness of breath, chest pain, or swelling of the ankles.
[2020-06-09 07:16] VITALS: BP 132/79
--- NOTE | 2020-06-09 10:41 | EKG REPORT ---
SEVERITY:- BORDERLINE ECG - SINUS RHYTHM : Confirmed by: Haile Ferro MD 09-Jun-2020 10:40:51
== END 2020-06-09 07:03 | disposition home or self-care (01) ==
LOC: ER 01:49
DX: R00.0 Tachycardia, unspecified (principal); E89.0 Postprocedural hypothyroidism; I10 Essential (primary) hypertension; Z79.899 Other long term (current) drug therapy; Z88.8 Allergy status to other drugs, medicaments and biological substances
CPT/HCPCS: 36415; 80053; 84443; 84703; 85025; 85379; 93005; 93010; 99285

== ENCOUNTER 2020-07-07 10:33 | Emergency (ER) | payer SELFPAY ==
--- NOTE | 2020-07-07 10:53 | ER Document Report ---
ED Medical Screen (RME) - General Chief Complaint: Palpitations Stated Complaint: CHEST PAIN Time Seen by Provider: 07/07/20 10:48 Mode of Arrival: Ambulatory Information source: Patient Notes: 32-year-old female presents to ED for palpitations. She states she wakes up at night with the palpitations and feeling very anxious. She states she is also anemic and she changed her iron pills and then has changed her back today. She states she was seen for the same thing about 2 weeks ago. She was on a diet medicine at that time and has stopped taking that that day. She also changed her thyroid medication decreased it from 188 mcg to 150 mcg. She does not have a thyroid is while she is on this large dose. She states she becomes very short of breath when it wakes her up no nausea no vomiting. Is on her menstrual cycle now she started her on 2 days ago. Never smoked does not use alcohol or illicit drugs. Not have any history of anxiety depression and is not on any medications for these. She states she does not know if the IUD may be causing part of the problem. She states that just placed the IUD in March because of her anemia. She also has a bilateral tubal ligation. I have greeted and performed a rapid initial assessment of this patient. A comprehensive ED assessment and evaluation of the patient, analysis of test results and completion of medical decision making process will be conducted by an additional ED providers. TRAVEL OUTSIDE OF THE [place] IN LAST 30 DAYS: No - Related Data Allergies/Adverse Reactions: oseltamivir [From Tamiflu] Allergy (Verified 02/21/19 13:25) acetaminophen [From Percocet] Adverse Reaction (Verified 02/21/19 13:25) oxycodone [From Percocet] Adverse Reaction (Verified 02/21/19 13:25) Past Medical History - Past Medical History Cardiac Medical History: Reports: Hx Hypercholesterolemia, Hx Hypertension - x4 yrs, medication Denies: Hx Heart Attack, Hx Heart Murmur Pulmonary Medical History: Denies: Hx Asthma Neurological Medical History: Reports: Hx Seizures - x3 2007, no meds now . Denies: Hx Cerebrovascular Accident Endocrine Medical History: Reports: Hx Hyperthyroidism Renal/ Medical History: Denies: Hx Peritoneal Dialysis GI Medical History: Denies: Hx Hepatitis, Hx Hiatal Hernia, Hx Ulcer Infectious Medical History: Denies: Hx Hepatitis Past Surgical History: Reports: Hx Section, Hx Thyroid Surgery - 11/13/15 Removal, Hx Tubal Ligation. Denies: Hx Hysterectomy, Hx Mastectomy, Hx Open Heart Surgery, Hx Pacemaker - Immunizations Hx Diphtheria, Pertussis, Tetanus Vaccination: Yes Physical Exam - Vital signs Vitals: Temp Pulse Resp BP Pulse Ox 98.5 F 85 16 147/92 H 98 07/07/20 10:44 07/07/20 10:44 07/07/20 10:44 07/07/20 10:44 07/07/20 10:44 Course - Vital Signs Vital signs: Temp Pulse Resp BP Pulse Ox 98.5 F 85 16 147/92 H 98 07/07/20 10:44 07/07/20 10:44 07/07/20 10:44 07/07/20 10:44 07/07/20 10:44
[2020-07-07 11:16] LABS: ABSOLUTE BASOPHILS # (AUTO) 0.1 10^3/uL (0.0-0.2); ABSOLUTE EOSINOPHILS # (AUTO) 0.1 10^3/uL (0.0-0.6); ABSOLUTE LYMPHOCYTES (AUTO) 1.6 10^3/uL (0.5-4.7); ABSOLUTE MONOCYTES (AUTO) 0.4 10^3/uL (0.1-1.4); ABSOLUTE NEUT (AUTO) 7.4 10^3/uL (1.7-8.2); BASOPHILS % (AUTO) 0.5 % (0-2); EOSINOPHILS % (AUTO) 0.6 % (0-6); HEMATOCRIT 40.9 % (36.0-47.0); HEMOGLOBIN 14.1 g/dL (12.0-15.5); LYMPHOCYTES % (AUTO) 17.1 % (13-45); MEAN CORPUSCULAR HEMOGLOBIN 27.9 pg (27.0-33.4); MEAN CORPUSCULAR HGB CONC 34.5 g/dL (32.0-36.0); MEAN CORPUSCULAR VOLUME 81 fl (80-97); MONOCYTES % (AUTO) 4.3 % (3-13); PLATELET COUNT 365 10^3/uL (150-450); RED BLOOD COUNT 5.06 10^6/uL (3.72-5.28); RED CELL DISTRIBUTION WIDTH 14.7 % (11.5-14.0); SEGMENTED NEUTROPHILS % (AUTO) 77.5 % (42-78); TOTAL CELLS COUNTED % (AUTO) 100 %; WHITE BLOOD COUNT 9.6 10^3/uL (4.0-10.5)
[2020-07-07 11:26] LABS: APPEARANCE,URINE SLIGHTLY-CLOUDY; BILIRUBIN,URINE NEGATIVE (NEGATIVE); COLOR,URINE AMBER; GLUCOSE, URINE NEGATIVE (NEGATIVE); KETONES,URINE NEGATIVE (NEGATIVE); LEUKOCYTE ESTERASE,URINE NEGATIVE (NEGATIVE); NITRITE,URINE NEGATIVE (NEGATIVE); PROTEIN,URINE 100 mg/dL (NEGATIVE); URINE SPECIFIC GRAVITY 1.031; UROBILINOGEN,URINE NEGATIVE mg/dL (<2.0)
[2020-07-07 11:39] LABS: ALBUMIN 4.7 g/dL (3.5-5.0); ALKALINE PHOSPHATASE 65 U/L (38-126); ANION GAP 10 (5-19); ASPARTATE AMINO TRANSFERASE 28 U/L (14-36); BILIRUBIN,DIRECT 0.2 mg/dL (0.0-0.4); BILIRUBIN,TOTAL 0.6 mg/dL (0.2-1.3); BLOOD UREA NITROGEN 13 mg/dL (7-20); CALCIUM 9.2 mg/dL (8.4-10.2); CARBON DIOXIDE 26 mmol/L (22-30); CHLORIDE 105 mmol/L (98-107); GLUCOSE 110 mg/dL (75-110); POTASSIUM 4.5 mmol/L (3.6-5.0); TOTAL PROTEIN 7.8 g/dL (6.3-8.2)
[2020-07-07 11:55] LABS: FREE T3 2.77 pg/mL (2.77-5.27)
[2020-07-07 12:00] LABS: FREE T4 (FREE THYROXINE) 1.55 ng/dL (0.78-2.19)
[2020-07-07 12:09] LABS: THYROID STIMULATING HORMONE 0.76 uIU/mL (0.47-4.68)
--- NOTE | 2020-07-07 13:23 | EKG REPORT ---
SEVERITY:- NORMAL ECG - SINUS RHYTHM : Confirmed by: Haile Ferro MD 07-Jul-2020 13:23:17
--- NOTE | 2020-07-07 14:42 | ER Document Report ---
Entered by FADI CARRILLO SCRIBE 07/07/20 1145 Acting as scribe for:COY GILLILAND MD ED Cardiac - General Chief Complaint: Palpitations Stated Complaint: CHEST PAIN Time Seen by Provider: 07/07/20 10:48 Mode of Arrival: Ambulatory Information source: Patient Notes: This 34 year old female patient presents to the emergency department today with complaints of heart palpitations for the last few weeks. She reports that she has been worked up for these palpitations and her synthroid medication was lowered from 188 mcg to 150 mcg thinking that it was "too much" by her clinical medical assistant. She also that she had the Mirena placed about 3 months ago and she thinks this is causing anxiety as well as the palpitations. TRAVEL OUTSIDE OF THE [place] IN LAST 30 DAYS: No - Related Data Allergies/Adverse Reactions: oseltamivir [From Tamiflu] Allergy (Verified 07/07/20 10:53) acetaminophen [From Percocet] Adverse Reaction (Verified 07/07/20 10:53) oxycodone [From Percocet] Adverse Reaction (Verified 07/07/20 10:53) Home Medications: Amlodipine, Levothyroxine 150 mcg 1 tab daily Past Medical History - General Information source: Patient - Social History Smoking Status: Never Smoker Cigarette use (# per day): No Frequency of alcohol use: None Drug Abuse: None Lives with: Family Family History: Reviewed & Not Pertinent - Past Medical History Cardiac Medical History: Reports: Hx Hypercholesterolemia, Hx Hypertension - x4 yrs, medication Neurological Medical History: Reports: Hx Seizures - x3 2007, no meds now Endocrine Medical History: Reports: Hx Hypothyroidism Past Surgical History: Reports: Hx Section, Hx Thyroid Surgery - 11/13/15 Removal, Hx Tubal Ligation - Immunizations Hx Diphtheria, Pertussis, Tetanus Vaccination: Yes Review of Systems - Review of Systems Constitutional: No symptoms reported EENT: No symptoms reported Cardiovascular: See HPI, Palpitations Respiratory: No symptoms reported Gastrointestinal: No symptoms reported Genitourinary: No symptoms reported Female Genitourinary: No symptoms reported Musculoskeletal: No symptoms reported Skin: No symptoms reported Hematologic/Lymphatic: No symptoms reported Neurological/Psychological: See HPI, Anxiety -: Yes All other systems reviewed and negative Physical Exam - Vital signs Vitals: Temp Pulse Resp BP Pulse Ox 98.5 F 85 16 147/92 H 98 07/07/20 10:44 07/07/20 10:44 07/07/20 10:44 07/07/20 10:44 07/07/20 10:44 - Notes Notes: Physical Exam: General: Alert, appears well. HEENT: Normocephalic. Atraumatic. PERRL. Extraocular movements intact. Oropharynx clear. Neck: Supple. Non-tender. Respiratory: No respiratory distress. Clear and equal breath sounds bilaterally. Cardiovascular: Regular rate and rhythm. Abdominal: Obese. Non-tender. No distension. Normal Bowel Sounds. Back: No gross abnormalities. Extremities: Moves all four extremities. Upper extremities: Normal inspection. Normal ROM. Lower extremities: Normal inspection. No edema. Normal ROM. Neurological: Normal cognition. AAOx4. Normal speech. Psychological: Normal affect. Normal Mood. Skin: Warm. Dry. Normal color. Course - Re-evaluation Re-evalutation: 07/07/20 14:39 Patient resting comfortably not showing any signs of distress at this time. - Vital Signs Vital signs: Temp Pulse Resp BP Pulse Ox 98.5 F 85 19 144/78 H 97 07/07/20 10:44 07/07/20 10:44 07/07/20 13:01 07/07/20 13:01 07/07/20 13:01 - Laboratory Result Diagrams: 07/07/20 11:00 07/07/20 11:00 Laboratory results interpreted by me: 07/07/20 07/07/20 11:00 11:00 RDW 14.7 H Urine Protein 100 H Urine Ascorbic Acid 40 H - EKG Interpretation by Me Additional EKG results interpreted by me: 07/07/20 14:40 Twelve-lead EKG shows normal sinus rhythm rate of [address]-T wave changes. Discharge - Discharge Clinical Impression: Palpitations with regular cardiac rhythm Condition: Stable Disposition: HOME, SELF-CARE Instructions: Palpitations (Irregular or Rapid Heartrate) ([facility]) Additional Instructions: Follow-up with your primary care physician regarding the work-up that you are in the midst of for palpitations as well as following tracking your thyroid functions. Today we have not found any evidence of palpitations or irregular heartbeats. I personally performed the services described in the documentation, reviewed and edited the documentation which was dictated to the scribe in my presence, and it accurately records my words and actions.
[2020-07-07 14:51] VITALS: BP 140/87
== END 2020-07-07 14:51 | disposition home or self-care (01) ==
LOC: ER 10:33
DX: R00.2 Palpitations (principal); R07.9 Chest pain, unspecified; I10 Essential (primary) hypertension; E78.00 Pure hypercholesterolemia, unspecified; Z88.6 Allergy status to analgesic agent; Z97.5 Presence of (intrauterine) contraceptive device
CPT/HCPCS: 36415; 80053; 81001; 84439; 84443; 84481; 84484; 84703; 85025; 86850; 86900; 86901; 93005; 93010; 99284

== ENCOUNTER 2020-10-17 13:47 | Emergency (ER) | payer BC ==
[2020-10-17 13:56] VITALS: BP 146/89
--- NOTE | 2020-10-17 14:31 | ER Document Report ---
ED ENT - General Chief Complaint: Ear Pain Stated Complaint: EARS RINGING,HEAD PRESSURE Time Seen by Provider: 10/17/20 14:06 Primary Care Provider: SARAHI CAMARENA DO [ASSOCIATE] - Follow up as needed TRAVEL OUTSIDE OF THE [place] IN LAST 30 DAYS: No - HPI Notes: 34-year-old female presents to ED for evaluation of increasing tinnitus over the last several weeks. Reports it has gotten particularly worse in the last several days. Notes that it is bilateral in nature. Patient states that she had been on a course of amlodipine for management of her blood pressure however had been taken off the medication as she had not been tolerating the side effects. She is concerned that this medication may have caused her symptoms. Patient states that she has been off the medication roughly 3 to 4 weeks. That she expected to see some degree of improvement however has not yet had any improvement in her tinnitus. She reports it is much worse at night when everything around her is quiet and throughout the course of the day she notices it less. She has not tried any medications for management. Denies any dizziness lightheadedness, or headaches. Denies any visual changes. She has not had any hearing testing performed today before today. Does report that she had an MRI done with her neurologist 2 to 3 weeks ago which did not show any acute abnormalities or concerns for tumors at that time. - Related Data Allergies/Adverse Reactions: oseltamivir [From Tamiflu] Allergy (Verified 10/17/20 14:06) acetaminophen [From Percocet] Adverse Reaction (Verified 10/17/20 14:06) oxycodone [From Percocet] Adverse Reaction (Verified 10/17/20 14:06) Past Medical History - Social History Smoking Status: Never Smoker Chew tobacco use (# tins/day): No Frequency of alcohol use: None Drug Abuse: None Family History: Reviewed & Not Pertinent - Past Medical History Cardiac Medical History: Reports: Hx Hypercholesterolemia, Hx Hypertension - x4 yrs, medication Denies: Hx Heart Attack, Hx Heart Murmur Pulmonary Medical History: Denies: Hx Asthma Neurological Medical History: Reports: Hx Seizures - x3 2007, no meds now . Denies: Hx Cerebrovascular Accident Endocrine Medical History: Reports: Hx Hyperthyroidism, Hx Hypothyroidism Renal/ Medical History: Denies: Hx Peritoneal Dialysis GI Medical History: Denies: Hx Hepatitis, Hx Hiatal Hernia, Hx Ulcer Infectious Medical History: Denies: Hx Hepatitis Past Surgical History: Reports: Hx Section, Hx Thyroid Surgery - 11/13/15 Removal, Hx Tubal Ligation. Denies: Hx Hysterectomy, Hx Mastectomy, Hx Open Heart Surgery, Hx Pacemaker - Immunizations Hx Diphtheria, Pertussis, Tetanus Vaccination: Yes Review of Systems - Review of Systems Notes: Constitutional: Negative for fever. HENT: Negative for sore throat. + for hearing difficulties. Eyes: Negative for visual changes. Cardiovascular: Negative for chest pain. Respiratory: Negative for shortness of breath. Gastrointestinal: Negative for abdominal pain, vomiting or diarrhea. Genitourinary: Negative for dysuria. Musculoskeletal: Negative for back pain. Skin: Negative for rash. Neurological: Negative for headaches, weakness or numbness. 10 point ROS negative except as marked above and in HPI. Physical Exam - Vital signs Vitals: Temp Pulse Resp BP Pulse Ox 98.2 F 101 H 16 146/89 H 99 10/17/20 13:55 10/17/20 13:55 10/17/20 13:55 10/17/20 13:55 10/17/20 13:55 General: No acute distress. Alert and oriented x3. Sitting comfortably in a stretcher. Skin: Intact without any jaundice, pallor, or erythema. Warm and dry. HEENT: Normocephalic, atraumatic. Pupils are equal round reactive to light and accommodation. Extraocular movements are intact. TMs without erythema or bulging. Canals are clear. No changes in hearing noted bilaterally. Nares patent without any discharge. Teeth in good condition. Pharynx without erythema, edema, or exudates. No tonsillar enlargement. Uvula is midline. Airway is patent. Neck: Supple with no lymphadenopathy. Full range of motion. Heart: Regular rate and rhythm. S1,S2. No murmurs, rubs, or gallops. Lungs: Clear to ausculation bilaterally. No wheezes, rhonchi, rales. Equal chest expansion. No retractions. Psych: Mood and affect appropriate. Course - Re-evaluation Re-evalutation: 10/18/20 23:33 4-year-old female presents to ED for evaluation of increased hearing changes concerning for tinnitus. Patient has been taking amlodipine. Patient is now off the medication. Patient denies any other complaints at this time. On exam, patient does have hearing intact bilaterally. I discussed with patient that I do believe she will ultimately need hearing test evaluation. Patient does have someone who can evaluate this for her. I also recommended she follow-up with ENT. This may very well be due to her underlying amlodipine. Patient had a recent MRI that showed no structural abnormalities or tumors. I do not believe much would be gained from a CAT scan at this time. Patient was encouraged to follow-up with ENT services. I did recommend we could start antihistamines to see if this does improve her symptoms. She is willing to try this and proceed with the appropriate follow-up. Patient understands her indications to return to the ED. Understands her course of management. Patient is agreeable with care plan. - Vital Signs Vital signs: Temp Pulse Resp BP Pulse Ox 98.2 F 101 H 16 146/89 H 99 10/17/20 13:55 10/17/20 13:55 10/17/20 13:55 10/17/20 13:55 10/17/20 13:55 - Laboratory Results Critical Laboratory Results Reviewed: No Critical Results - Radiology Results Critical Radiology Results Reviewed: No Critical Results Discharge - Discharge Clinical Impression: Tinnitus of both ears Condition: Stable Disposition: HOME, SELF-CARE Prescriptions: Meclizine HCl [Antivert 25 mg Tablet] 25 mg PO TID PRN #21 tablet PRN Reason: Referrals: SARAHI CAMARENA DO [ASSOCIATE] - Follow up as needed
== END 2020-10-17 14:36 | disposition home or self-care (01) ==
LOC: ER 13:47
DX: H93.13 Tinnitus, bilateral (principal); I10 Essential (primary) hypertension; Z88.3 Allergy status to other anti-infective agents
CPT/HCPCS: 99283